=== PATIENT | male | born 1980 | race Caucasian/White ===

== ENCOUNTER 2020-08-20 00:18 | Emergency (ER) | payer OTHER ==
[~2020-08-20] VITALS: Ht 165.1 cm; Wt 79.4 kg
[2020-08-20 00:39] LABS: URINE BILIRUBIN NEGATIVE (Negative); URINE BLOOD NEGATIVE (Negative); URINE CLARITY CLEAR; URINE COLOR YELLOW; URINE GLUCOSE-RANDOM NEGATIVE (Negative); URINE KETONES TRACE (Negative); URINE LEUKOCYTES-REFLEX NEGATIVE (Negative); URINE NITRITE-REFLEX NEGATIVE (Negative); URINE PROTEIN TRACE (Negative); URINE SPECIFIC GRAVITY 1.025 (1.005-1.030); URINE UROBILINOGEN 0.2 E.U./dl (0.2-1.0)
[2020-08-20 00:40] LABS: ABSOLUTE BASOPHILS 0.1 thou/uL (0.0-0.2); ABSOLUTE EOSINOPHILS 0.2 thou/uL (0.0-0.7); ABSOLUTE LYMPHOCYTES 4.8 thou/uL (0.8-5.3); ABSOLUTE MONOCYTES 1.2 thou/uL (0.0-1.2); ABSOLUTE NEUTROPHILS 7.6 thou/uL (1.6-8.1); BASOPHILS 0.5 %; EOSINOPHILS 1.8 %; HEMATOCRIT 43.4 % (42.0-52.0); HEMOGLOBIN 15.3 gm/dL (14.0-18.0); LYMPHOCYTES 34.7 %; MCH 31.9 pg (26.0-34.0); MCHC 35.2 g/dL (28.0-37.0); MCV 90.6 fL (80.0-100.0); MONOCYTES 8.5 %; MPV 8.3 fl. (7.2-11.1); NUCLEATED RBCS 0 /100WBC; PLATELET COUNT* 191 thou/uL (150-400); POLYS 54.5 %; RDW-CV 13.3 % (10.5-14.5); WBC 13.9 thou/uL (4.0-11.0)
[2020-08-20 00:53] LABS: CALCIUM 9.7 mg/dL (8.5-10.1); CREATININE 1.2 mg/dL (0.6-1.3); POTASSIUM 2.4 mmol/L (3.5-5.1)
[2020-08-20] MEDS ORDERED: ZOFRAN ODT4 MG PO (05:59)
[2020-08-20] MEDS ORDERED: HYDROCODON-ACE1 EAC8 PO (05:59)
[2020-08-20 06:07] VITALS: BP 107/57
== END 2020-08-20 06:07 | disposition home or self-care (01) ==
LOC: M.ERS 00:18
PROVIDERS: Emergency Medicine
DX: E87.6 Hypokalemia (principal); R10.9 Unspecified abdominal pain; R11.10 Vomiting, unspecified; R19.7 Diarrhea, unspecified; F17.210 Nicotine dependence, cigarettes, uncomplicated